=== PATIENT | male | born 1990 ===

== ENCOUNTER 2021-05-01 22:24 | Emergency (ER) ==
[2021-05-02] MEDS ORDERED: Acetaminophen 500 MG TAB ONE (01:05)
== END 2021-05-02 02:37 | disposition left against medical advice (07) ==
LOC: ERS 22:24
DX: Z53.21 Procedure and treatment not carried out due to patient leaving prior to being seen by health care provider (principal)
CPT/HCPCS: 70450; 70486; 72125